=== PATIENT | male | born 1950 | race Caucasian/White ===

== ENCOUNTER 2017-03-23 17:34 | Inpatient (IN) | payer OTHER ==
[2017-03-23] MEDS ORDERED: Sodium Chloride 0.9% 2.5 ML Syringe FLUSH PRN ×2 (17:52→19:58)
[2017-03-23] MEDS ORDERED: Sodium Chloride 0.9% 10 ML Syringe FLUSH PRN ×2 (17:52→19:58)
[2017-03-23 18:19] LABS: CHLORIDE,CL 108 mmol/L (98-110); SODIUM,NA 141 mmol/L (136-146)
[2017-03-23] MEDS ORDERED: Aspirin 81 MG Tab.Chew PO ONE (18:26)
--- NOTE | 2017-03-23 18:29 | EDM.PDOC ---
ED HPI GENERAL MEDICAL PROBLEM - General Chief Complaint: Neuro Symptoms/Deficits Stated Complaint: SLURRED SPEECH/DROOLING/STUMBLING/HBP Time Seen by Provider: 03/23/17 17:44 - History of Present Illness INITIAL COMMENTS - FREE TEXT/NARRATIVE: HISTORY AND PHYSICAL: History of present illness: Patient is 66-year-old white male who presents with a concern of slurred speech and difficulty walking last known well time was last night and patient was witnessed to have these symptoms at 9 AM but declined transfer to Hospital that time all of his symptoms have improved somewhat although he still does have speech that is considered to be abnormal per son and patient his symptoms earlier included difficulty walking with associated fall slurred speech and drooling. He denies chest pain shortness of breath nice prior stroke or [place] all his symptoms have resolved with the exception of speech per patient and son Review of systems: As per history of present illness and below otherwise all systems reviewed and negative. Past medical history: As per history of present illness and as reviewed below otherwise noncontributory. Surgical history: As per history of present illness and as reviewed below otherwise noncontributory. Social history: No reported history of drug or alcohol abuse. Family history: As per history of present illness and as reviewed below otherwise noncontributory. Physical exam: HEENT: Atraumatic, normocephalic, pupils reactive, negative for conjunctival pallor or scleral icterus, mucous membranes moist, throat clear, neck supple, nontender, trachea midline. Lungs: Clear to auscultation, breath sounds equal bilaterally, chest nontender. Heart: S1S2, regular, negative for clicks, rubs, or JVD. Abdomen: Soft, nondistended, nontender. Negative for masses or hepatosplenomegaly. Negative for costovertebral tenderness. Pelvis: Stable nontender. Genitourinary: Deferred. Rectal: Deferred. Extremities: Atraumatic, negative for cords or calf pain. Neurovascular unremarkable. Neuro: Awake, alert, oriented. Speech is noted to be somewhat deliberate and is reportedly not as fluid or clear as baseline per son Cranial nerves II through XII unremarkable. Cerebellum unremarkable. Motor and sensory unremarkable throughout. Exam nonfocal. Diagnostics: CBC CMP troponin PT/INR chest x-ray EKG CT brain Therapeutics: IV O2 monitor aspirin Impression: #1 history of dysarthria/ataxia improved #2 history of fall Definitive disposition and diagnosis as appropriate pending reevaluation and review of above. - Related Data Allergies Allergy/AdvReac Type Severity Reaction Status Date / Time No Known Allergies Allergy Verified 03/23/17 17:50 Home Meds: Home Meds Triamterene/Hydrochlorothiazid [Triamterene-HCTZ 75-50 MG] 1 tab DAILY 03/23/17 [History] Past Medical History HEENT History: Reports: None Cardiovascular History: Reports: Hypertension Respiratory History: Reports: None Genitourinary History: Reports: None Musculoskeletal History: Reports: None Neurological History: Reports: None Psychiatric History: Reports: None Endocrine/Metabolic History: Reports: None Hematologic History: Reports: None Immunologic History: Reports: None Oncologic (Cancer) History: Reports: None Dermatologic History: Reports: None - Past Surgical History Head Surgeries/Procedures: Reports: None GI Surgical History: Reports: Hernia, Inguinal Social & Family History - Tobacco Use Smoking Status *Q: Never Smoker Second Hand Smoke Exposure: No - Recreational Drug Use Recreational Drug Use: No ED ROS GENERAL - Review of Systems Review Of Systems: ROS reveals no pertinent complaints other than HPI. ED EXAM, GENERAL - Physical Exam Exam: See Below (See dictation) Course - Vital Signs Last Recorded V/S: Last Vital Signs Temp 36.3 C 03/23/17 17:40 Pulse 89 03/23/17 18:45 Resp 16 03/23/17 18:45 BP 159/98 H 03/23/17 18:45 Pulse Ox 95 03/23/17 18:45 - Orders/Labs/Meds Orders: Active Orders 24 hr Category Date Time Status Bedrest [RC] ASDIRECTED Care 03/23/17 17:52 Active Blood Glucose Check, Bedside [RC] STAT Care 03/23/17 17:52 Active Cardiac Monitoring [RC] . DIRECTED Care 03/23/17 17:52 Active EKG Documentation Completion [RC] STAT Care 03/23/17 17:52 Active Height and Weight [RC] UPON Care 03/23/17 17:52 Active Initiate Acute Stroke Protocol [RC] STAT Care 03/23/17 17:52 Active NIH Stroke Scale [RC] ASDIRECTED Care 03/23/17 17:52 Active Nursing Bedside Swallow Screen [RC] ASDIRECTED Care 03/23/17 17:52 Active Oxygen Therapy [RC] ASDIRECTED Care 03/23/17 17:52 Active Stroke Education, General [RC] Click To Edit Care 03/23/17 17:52 Active Vital Signs [RC] Q15M Care 03/23/17 17:52 Active Chest 1V Frontal [CR] Stat Exams 03/23/17 17:53 Taken Head wo Cont [CT] Stat Exams 03/23/17 17:52 Taken Sodium Chloride 0.9% [Saline Flush] Med 03/23/17 17:52 Active 10 ml FLUSH ASDIRECTED PRN Sodium Chloride 0.9% [Saline Flush] Med 03/23/17 17:52 Active 2.5 ml FLUSH ASDIRECTED PRN Peripheral IV Insertion Adult [OM.PC] Stat Oth 03/23/17 17:52 Ordered Peripheral IV Insertion Adult [OM.PC] Stat Oth 03/23/17 17:52 Ordered Medication Orders Sodium Chloride (Saline Flush) 10 ml FLUSH ASDIRECTED PRN PRN Reason: Keep Vein Open Last Admin: 03/23/17 18:52 Dose: 10 ml Sodium Chloride (Saline Flush) 2.5 ml FLUSH ASDIRECTED PRN PRN Reason: Keep Vein Open Last Admin: 03/23/17 18:52 Dose: 2.5 ml Labs: Laboratory Tests 03/23/17 03/23/17 03/23/17 Range/Units 17:53 17:53 17:53 WBC 4.92 (4.0-11.0) K/uL RBC 4.62 (4.50-5.90) M/uL Hgb 14.1 (13.0-17.0) g/dL Hct 41.1 (38.0-50.0) % MCV 89.0 (80.0-98.0) fL MCH 30.5 (27.0-32.0) pg MCHC 34.3 (31.0-37.0) g/dL RDW Std Deviation 45.3 (28.0-62.0) fl RDW Coeff of Antonia 14 (11.0-15.0) % Plt Count 238 (150-400) K/uL MPV 9.60 (7.40-12.00) fL Neut % (Auto) 55.7 (48.0-80.0) % Lymph % (Auto) 30.1 (16.0-40.0) % [place] % (Auto) 8.5 (0.0-15.0) % Eos % (Auto) 5.1 (0.0-7.0) % Baso % (Auto) 0.6 (0.0-1.5) % Neut # (Auto) 2.7 (1.4-5.7) K/uL Lymph # (Auto) 1.5 (0.6-2.4) K/uL [place] # (Auto) 0.4 (0.0-0.8) K/uL Eos # (Auto) 0.3 (0.0-0.7) K/uL Baso # (Auto) 0.0 (0.0-0.1) K/uL Nucleated RBC % 0.0 /100WBC Nucleated RBCs # 0 K/uL INR 1.03 (0.86-1.11) APTT 35.0 H (18.6-31.3) SEC Sodium 141 (136-146) mmol/L Potassium 3.9 (3.5-5.1) mmol/L Chloride 108 (98-110) mmol/L Carbon Dioxide 24 (21-31) mmol/L BUN 17 (6.0-23.0) mg/dL Creatinine 1.3 (0.6-1.5) mg/dL Est Cr Clr Drug Dosing TNP Estimated GFR (MDRD) 55.6 ml/min Glucose 143 H (60-110) mg/dL Calcium 9.0 (8.8-10.8) mg/dL Total Bilirubin 0.9 (0.1-1.5) mg/dL AST 22 (5-40) IU/L ALT 22 (8-54) IU/L Alkaline Phosphatase 71 (40-150) Troponin I (0.0-0.29) NG/ML Total Protein 6.7 (6.0-8.0) g/dL Albumin 4.1 (3.4-4.8) g/dL Globulin 2.6 (2.0-3.5) g/dL Albumin/Globulin Ratio 1.6 (1.3-2.8) TSH 3rd Generation 4.05 (0.47-5.0) uIU/mL Urine Color Urine Appearance Urine pH (5.0-8.0) Ur Specific [place] (1.001-1.035) Urine Protein (NEGATIVE) mg/dL Urine Glucose (UA) (NEGATIVE) mg/dL Urine Ketones (NEGATIVE) mg/dL Urine Occult Blood (NEGATIVE) Urine Nitrite (NEGATIVE) Urine Bilirubin (NEGATIVE) Urine Urobilinogen (<2.0) EU/dL Ur Leukocyte Esterase (NEGATIVE) Urine RBC (0-2/HPF) Urine WBC (0-5/HPF) Ur Epithelial Cells (NONE-FEW) Urine Bacteria (NEGATIVE) 03/23/17 03/23/17 Range/Units 17:53 18:26 WBC (4.0-11.0) K/uL RBC (4.50-5.90) M/uL Hgb (13.0-17.0) g/dL Hct (38.0-50.0) % MCV (80.0-98.0) fL MCH (27.0-32.0) pg MCHC (31.0-37.0) g/dL RDW Std Deviation (28.0-62.0) fl RDW Coeff of Antonia (11.0-15.0) % Plt Count (150-400) K/uL MPV (7.40-12.00) fL Neut % (Auto) (48.0-80.0) % Lymph % (Auto) (16.0-40.0) % [place] % (Auto) (0.0-15.0) % Eos % (Auto) (0.0-7.0) % Baso % (Auto) (0.0-1.5) % Neut # (Auto) (1.4-5.7) K/uL Lymph # (Auto) (0.6-2.4) K/uL [place] # (Auto) (0.0-0.8) K/uL Eos # (Auto) (0.0-0.7) K/uL Baso # (Auto) (0.0-0.1) K/uL Nucleated RBC % /100WBC Nucleated RBCs # K/uL INR (0.86-1.11) APTT (18.6-31.3) SEC Sodium (136-146) mmol/L Potassium (3.5-5.1) mmol/L Chloride (98-110) mmol/L Carbon Dioxide (21-31) mmol/L BUN (6.0-23.0) mg/dL Creatinine (0.6-1.5) mg/dL Est Cr Clr Drug Dosing Estimated GFR (MDRD) ml/min Glucose (60-110) mg/dL Calcium (8.8-10.8) mg/dL Total Bilirubin (0.1-1.5) mg/dL AST (5-40) IU/L ALT (8-54) IU/L Alkaline Phosphatase (40-150) Troponin I < 0.10 (0.0-0.29) NG/ML Total Protein (6.0-8.0) g/dL Albumin (3.4-4.8) g/dL Globulin (2.0-3.5) g/dL Albumin/Globulin Ratio (1.3-2.8) TSH 3rd Generation (0.47-5.0) uIU/mL Urine Color YELLOW Urine Appearance CLEAR Urine pH 6.5 (5.0-8.0) Ur Specific [place] 1.015 (1.001-1.035) Urine Protein NEGATIVE (NEGATIVE) mg/dL Urine Glucose (UA) NEGATIVE (NEGATIVE) mg/dL Urine Ketones NEGATIVE (NEGATIVE) mg/dL Urine Occult Blood NEGATIVE (NEGATIVE) Urine Nitrite NEGATIVE (NEGATIVE) Urine Bilirubin NEGATIVE (NEGATIVE) Urine Urobilinogen 0.2 (<2.0) EU/dL Ur Leukocyte Esterase NEGATIVE (NEGATIVE) Urine RBC 0-1 (0-2/HPF) Urine WBC 0-1 (0-5/HPF) Ur Epithelial Cells OCCASIONAL (NONE-FEW) Urine Bacteria FEW (NEGATIVE) Meds: Medications Generic Name Dose Route Start Last Admin Trade Name Freq PRN Reason Stop Dose Admin Sodium Chloride 10 ml 03/23/17 17:52 03/23/17 18:52 Saline Flush FLUSH 10 ml ASDIRECTED PRN Administration Keep Vein Open Sodium Chloride 2.5 ml 03/23/17 17:52 03/23/17 18:52 Saline Flush FLUSH 2.5 ml ASDIRECTED PRN Administration Keep Vein Open Discontinued Medications Generic Name Dose Route Start Last Admin Trade Name Freq PRN Reason Stop Dose Admin Aspirin 324 mg 03/23/17 18:26 03/23/17 18:47 Aspirin PO 03/23/17 18:27 324 mg ONETIME ONE Administration Departure - Departure Time of Disposition: 19:17 Disposition: Refer to Observation Condition: Good Clinical Impression: TIA (transient ischemic attack) - Discharge Information Forms: ED Department Discharge - My Orders Last 24 Hours: My Active Orders 03/23/17 17:52 Bedrest [RC] ASDIRECTED Blood Glucose Check, Bedside [RC] STAT Cardiac Monitoring [RC] . DIRECTED EKG Documentation Completion [RC] STAT Height and Weight [RC] UPON Initiate Acute Stroke Protocol [RC] STAT NIH Stroke Scale [RC] ASDIRECTED Nursing Bedside Swallow Screen [RC] ASDIRECTED Oxygen Therapy [RC] ASDIRECTED Stroke Education, General [RC] Click To Edit Vital Signs [RC] Q15M Head wo Cont [CT] Stat Sodium Chloride 0.9% [Saline Flush] 10 ml FLUSH ASDIRECTED PRN Sodium Chloride 0.9% [Saline Flush] 2.5 ml FLUSH ASDIRECTED PRN Peripheral IV Insertion Adult [OM.PC] Stat Peripheral IV Insertion Adult [OM.PC] Stat 03/23/17 17:53 Chest 1V Frontal [CR] Stat - Assessment/Plan Last 24 Hours: My Active Orders 03/23/17 17:52 Bedrest [RC] ASDIRECTED Blood Glucose Check, Bedside [RC] STAT Cardiac Monitoring [RC] . DIRECTED EKG Documentation Completion [RC] STAT Height and Weight [RC] UPON Initiate Acute Stroke Protocol [RC] STAT NIH Stroke Scale [RC] ASDIRECTED Nursing Bedside Swallow Screen [RC] ASDIRECTED Oxygen Therapy [RC] ASDIRECTED Stroke Education, General [RC] Click To Edit Vital Signs [RC] Q15M Head wo Cont [CT] Stat Sodium Chloride 0.9% [Saline Flush] 10 ml FLUSH ASDIRECTED PRN Sodium Chloride 0.9% [Saline Flush] 2.5 ml FLUSH ASDIRECTED PRN Peripheral IV Insertion Adult [OM.PC] Stat Peripheral IV Insertion Adult [OM.PC] Stat 03/23/17 17:53 Chest 1V Frontal [CR] Stat
[2017-03-23] MEDS ORDERED: Acetaminophen 325 MG Tab PO PRN (19:58)
[2017-03-23] MEDS ORDERED: Temazepam 15 MG Cap PO PRN (19:58)
[2017-03-23] MEDS ORDERED: Ondansetron 4 MG Tab.DIS PO PRN (19:58)
--- NOTE | 2017-03-23 19:58 | PCM.HP ---
H&P History of Present Illness - General Date of Service: 03/23/17 Source of Information: Patient, Family, Provider - History of Present Illness Initial Comments - Free Text/Narative: He noted onset of ataxia and dysarthria at about 0900 this am. He has a history of HTN and dyslipidemia - Related Data Allergies/Adverse Reactions: Allergies Allergy/AdvReac Type Severity Reaction Status Date / Time No Known Allergies Allergy Verified 03/23/17 17:50 Home Medications: Home Meds Triamterene/Hydrochlorothiazid [Triamterene-HCTZ 75-50 MG] 1 tab DAILY 03/23/17 [History] Past Medical History HEENT History: Reports: None Cardiovascular History: Reports: Hypertension Respiratory History: Reports: None. Denies: COPD Gastrointestinal History: Denies: Cirrhosis Genitourinary History: Reports: None Musculoskeletal History: Reports: None Neurological History: Reports: None. Denies: CVA, MS Psychiatric History: Reports: None Endocrine/Metabolic History: Reports: None. Denies: Diabetes, Type I, Diabetes , Type II Hematologic History: Reports: None Immunologic History: Reports: None Oncologic (Cancer) History: Reports: None Dermatologic History: Reports: None - Past Surgical History Head Surgeries/Procedures: Reports: None GI Surgical History: Reports: Hernia, Inguinal Social & Family History - Tobacco Use Smoking Status *Q: Never Smoker Second Hand Smoke Exposure: No - Alcohol Use Alcohol Use Comment: rare use of alcohol - Recreational Drug Use Recreational Drug Use: No H&P Review of Systems - Review of Systems: Review Of Systems: See Below General: Denies: Fever, Chills HEENT: Denies: Dysphasia, Eye Pain, Rhinitis Pulmonary: Denies: Shortness of Breath, Wheezing, Cough, Sputum Cardiovascular: Denies: Chest Pain, Palpitations, Edema, Other Gastrointestinal: Denies: Abdominal Pain, Anorexia, Bloody Stool, Hematemesis, Hematochezia, Vomiting Genitourinary: Reports: Other (urinary frequency). Denies: Dysuria, Burning, Hematuria Skin: Denies: Jaundice Psychiatric: Denies: Agitation, Hallucinations Neurological: Denies: Confusion Exam - Exam Exam: See Below - Vital Signs Vital Signs: Last Vital Signs Temp 97.4 F 03/23/17 17:40 Pulse 89 03/23/17 18:45 Resp 16 03/23/17 18:45 BP 159/98 H 03/23/17 18:45 Pulse Ox 95 03/23/17 18:45 Weight: 102 kg - Exam General: Alert, Oriented. No: Lethargic HEENT: EOMI, PERRLA Lungs: Clear to Auscultation, Normal Respiratory Effort Cardiovascular: Regular Rate, Regular Rhythm. No: Bradycardia, Tachycardia, Systolic Murmur, Diastolic Murmur GI/Abdominal Exam: Soft, Non-Tender Rectal (Males) Exam: Deferred Extremities: No Pedal Edema Neurological: No: Normal Speech (very slight slurring of speech) Neuro Extensive - Mental Status: Normal Mood/Affect, Other (conversant; very subtle right facial droop; no definite asymmetry in handgrip; unsteady gait; trouble keeping) Neuro Extensive - Motor, Sensory, Reflexes: No: Normal Gait (some loss of equilibrium with head turning), Pronator Drift (R), Pronator Drift (L), Abnormal Finger to Nose Psychiatric: Alert, Normal Affect. No: Depressed, Agitated, Hallucinations - Patient Data Result Diagrams: 03/23/17 17:53 03/23/17 17:53 *Q Meaningful Use (ADM) - VTE *Q VTE Criteria *Q: - Stroke *Q Stroke Criteria *Q: - AMI *Q AMI Criteria *Q: - Problem List (1) Ischemic stroke SNOMED Code(s): 925722798 ICD Code: I63.9 - CEREBRAL INFARCTION, UNSPECIFIED Status: Acute Current Visit: Yes (2) History of hypertension SNOMED Code(s): 183705356 ICD Code: Z86.79 - PERSONAL HISTORY OF OTHER DISEASES OF THE CIRCULATORY SYSTEM Status: Acute Current Visit: Yes Problem List Initiated/Reviewed/Updated: Yes Orders Last 24hrs: Medication Orders Sodium Chloride (Saline Flush) 10 ml FLUSH ASDIRECTED PRN PRN Reason: Keep Vein Open Last Admin: 03/23/17 18:52 Dose: 10 ml Sodium Chloride (Saline Flush) 2.5 ml FLUSH ASDIRECTED PRN PRN Reason: Keep Vein Open Last Admin: 03/23/17 18:52 Dose: 2.5 ml Assessment/Plan Comment:: admit see orders.
[2017-03-24] MEDS ORDERED: Hydrochlorothiazide/Triamterene 50-75 MG Tab PO SCH (09:00)
[2017-03-24] MEDS: Enoxaparin 40 MG/0.4 ML Syringe SUBCUT SCH (10:03)
[2017-03-24] MEDS: Aspirin 325 MG Tab PO SCH (10:03)
--- NOTE | 2017-03-24 10:14 | PCM.PN ---
- General Info Date of Service: 03/24/17 Admission Dx/Problem (Free Text): Ataxia, dysarthia Subjective Update: Still having complaints of slurred/slow speech. Also has complaints of unsteady gait if he moves too quickly. R arm weakness, feels it is related to his should injury, denies any pain to this arm. Has trouble lifting whole arm, not just with movement of shoulder joint. Denies chest pain, palpitations, or SOB. Functional Status: Reports: Pain Controlled, Tolerating Diet, Ambulating, Urinating - Review of Systems General: Reports: No Symptoms. Denies: Fever, Weakness, Fatigue Pulmonary: Denies: Shortness of Breath Cardiovascular: Denies: Chest Pain, Palpitations, Edema Gastrointestinal: Denies: Abdominal Pain, Nausea, Vomiting Genitourinary: Reports: No Symptoms. Denies: Frequency, Burning Musculoskeletal: Reports: No Symptoms Neurological: Reports: Trouble Speaking, Difficulty Walking (R sided weakness), Weakness (R arm and leg), Change in Speech (slurred and slow), Gait Disturbance. Denies: Headache Psychiatric: Reports: No Symptoms - Patient Data Vitals - Most Recent: Last Vital Signs Temp 97.2 F 03/24/17 08:00 Pulse 76 03/24/17 08:00 Resp 22 H 03/24/17 08:00 BP 149/94 H 03/24/17 08:00 Pulse Ox 97 03/24/17 08:00 Weight - Most Recent: 102 kg I&O - Last 24 Hours: Intake & Output 03/23/17 03/24/17 03/24/17 22:59 06:59 14:59 Intake Total 380 Output Total 1050 Balance -670 Lab Results Last 24 Hours: Laboratory Results - last 24 hr 03/24/17 03/24/17 03/24/17 Range/Units 04:55 04:55 04:55 WBC 4.09 (4.0-11.0) K/uL RBC 4.72 (4.50-5.90) M/uL Hgb 14.2 (13.0-17.0) g/dL Hct 42.4 (38.0-50.0) % MCV 89.8 (80.0-98.0) fL MCH 30.1 (27.0-32.0) pg MCHC 33.5 (31.0-37.0) g/dL RDW Std Deviation 45.6 (28.0-62.0) fl RDW Coeff of Antonia 14 (11.0-15.0) % Plt Count 235 (150-400) K/uL MPV 9.70 (7.40-12.00) fL Neut % (Auto) 49.9 (48.0-80.0) % Lymph % (Auto) 34.2 (16.0-40.0) % [place] % (Auto) 8.8 (0.0-15.0) % Eos % (Auto) 6.4 (0.0-7.0) % Baso % (Auto) 0.7 (0.0-1.5) % Neut # (Auto) 2.0 (1.4-5.7) K/uL Lymph # (Auto) 1.4 (0.6-2.4) K/uL [place] # (Auto) 0.4 (0.0-0.8) K/uL Eos # (Auto) 0.3 (0.0-0.7) K/uL Baso # (Auto) 0.0 (0.0-0.1) K/uL Nucleated RBC % 0.0 /100WBC Nucleated RBCs # 0 K/uL Sodium 141 (136-146) mmol/L Potassium 4.7 (3.5-5.1) mmol/L Chloride 106 (98-110) mmol/L Carbon Dioxide 28 (21-31) mmol/L BUN 17 (6.0-23.0) mg/dL Creatinine 1.3 (0.6-1.5) mg/dL Est Cr Clr Drug Dosing 68.61 mL/min Estimated GFR (MDRD) 55.6 ml/min Glucose 107 (60-110) mg/dL Calcium 9.4 (8.8-10.8) mg/dL Magnesium 1.7 (1.5-2.3) mEq/L Triglycerides 63 (10-190) mg/dL Cholesterol 150 (131-240) mg/dL LDL Cholesterol, Calc 107 (60-180) mg/dL VLDL Cholesterol 13 (5-55) mg/dL HDL Cholesterol 30 L (40-80) mg/dL Cholesterol/HDL Ratio 5.0 (3.3-6.0) Med Orders - Current: Current Medications Acetaminophen (Tylenol) 650 mg PO Q4H PRN PRN Reason: Pain (Mild 1-3)/fever Aspirin (Aspirin) 325 mg PO DAILY [facility] Last Admin: 03/24/17 10:03 Dose: 325 mg Enoxaparin Sodium (Lovenox) 40 mg SUBCUT DAILY [facility] Last Admin: 03/24/17 10:03 Dose: 40 mg Ondansetron HCl (Zofran Odt) 4 mg PO Q4H PRN PRN Reason: nausea, able to take PO Sodium Chloride (Saline Flush) 10 ml FLUSH ASDIRECTED PRN PRN Reason: Keep Vein Open Sodium Chloride (Saline Flush) 2.5 ml FLUSH ASDIRECTED PRN PRN Reason: Keep Vein Open Temazepam (Restoril) 15 mg PO BEDTIME PRN PRN Reason: Sleep Discontinued Medications Aspirin (Aspirin) 324 mg PO ONETIME ONE Stop: 03/23/17 18:27 Last Admin: 03/23/17 18:47 Dose: 324 mg Sodium Chloride (Saline Flush) 10 ml FLUSH ASDIRECTED PRN PRN Reason: Keep Vein Open Last Admin: 03/23/17 18:52 Dose: 10 ml Sodium Chloride (Saline Flush) 2.5 ml FLUSH ASDIRECTED PRN PRN Reason: Keep Vein Open Last Admin: 03/23/17 18:52 Dose: 2.5 ml Triamterene/HCTZ (Maxzide 50-75 Mg) 1 each PO DAILY [facility] - Exam General: Alert, Oriented, Cooperative, No Acute Distress HEENT: Pupils Equal Neck: Supple, Trachea Midline, +2 Carotid Pulse wo Bruit Lungs: Clear to Auscultation, Normal Respiratory Effort Cardiovascular: Regular Rate, Regular Rhythm, No Murmurs. No: Irregular Rhythm Extremities: Normal Inspection, Normal Range of Motion, Non-Tender, No Pedal Edema, Normal Capillary Refill Neurological: No: Normal Gait, Normal Speech, Strength Equal Bilateral (R weaker than L, ataxia noted.), Cranial Nerves Intact (R sided facial droop) Psy/Mental Status: Alert, Normal Affect, Normal Mood - Problem List & Annotations (1) Ischemic stroke SNOMED Code(s): 899383604 Code(s): I63.9 - CEREBRAL INFARCTION, UNSPECIFIED Status: Acute Current Visit: Yes (2) HTN (hypertension) SNOMED Code(s): 83403683 Code(s): I10 - ESSENTIAL (PRIMARY) HYPERTENSION Status: Chronic Current Visit: Yes Qualifiers: Hypertension type: essential hypertension Qualified Code(s): I10 - Essential (primary) hypertension (3) Dyslipidemia SNOMED Code(s): 229496534 Code(s): E78.5 - HYPERLIPIDEMIA, UNSPECIFIED Status: Chronic Current Visit: Yes Annotation/Comment:: never been on medication, treating with grape seed oil per patient. - Problem List Review Problem List Initiated/Reviewed/Updated: Yes - My Orders Last 24 Hours: My Active Orders 03/24/17 10:07 GLYCOSYLATED HEMOGLOBIN,HGBA1C [CHEM] Routine - Plan Plan:: This 66 year old male admitted with ataxia and dysarthia 1. Suspected ischemic CVA: ECHO pending. MRI/MRA head/neck ordered for today. Allow permissive HTN for now, will consult Dr. Simms, neurology. Will consult PT/OT/ST for evaluation and treatment. Total cholesterol 150 LDL 107, HDL 30, A1C 5.6. Will continue ASA and start high intensity statin therapy today , Atorvastatin 80 mg. 2. HTN: Hold HCTZ/Triamterene for now. VTE prophylaxis: Lovenox. Dispo: 2-3 days pending further evaluation from Neurologist and therapies.
--- NOTE | 2017-03-24 10:17 | CR ---
EXAM DATE: 03/23/17 PATIENT'S AGE: 66 Patient: JULIANE OSUNA Facility: [place], [place] Site . Site : 1950 Study: XRay Chest [id number]/21/2017 6:08:07 PM Ordering Physician: Vinny Diaz Final Report: INDICATIONS: Stroke. Code. TECHNIQUE: Chest 1 view, AP upright. COMPARISON: None FINDINGS: No pneumothorax, pleural effusion or airspace consolidation. Cardiac and mediastinal contours are within normal limits. Upper abdomen and osseous structures show no acute abnormality. IMPRESSION: No evidence of acute cardiopulmonary disease. Dictated by Cordell Ford MD @ 03/23/2017 6:38:13 PM Dictated by: Cordell Ford MD @ 03/23/2017 18:39:10 (Electronic Signature) Report Signed by Proxy. [facility]ENTER[facility]ign[facility]
--- NOTE | 2017-03-24 10:18 | CT ---
EXAM DATE: 03/23/17 PATIENT'S AGE: 66 Patient: JULIANE OSUNA Facility: [place], [place] Site . Site : 1950 Study: CT Head STROKE PROTOCOL [id number]/21/2017 6:09:46 PM Ordering Physician: Vinny Diaz Final Report: INDICATION: Clinical suspicion for acute ischemic event. TECHNIQUE: CT head without contrast. COMPARISON: None FINDINGS: CSF spaces: Within normal limits for age. Brain parenchyma: The leo-white differentiation is normal. No sign of mass, hemorrhage, or midline shift. Skull base and calvarium: The visualized paranasal sinuses and mastoid air cells demonstrate no acute or significant findings. The visualized orbits are grossly unremarkable. No skull fractures. IMPRESSION: Unremarkable noncontrast head CT. No acute intracranial abnormalities. Dictated by Ramesh Jaquez MD @ 03/23/2017 6:16:41 PM Dictated by: Ramesh Jaquez MD @ 03/23/2017 18:16:55 ----- ADDENDUM ----- Confirmation of report received on 03/23/2017 at 6:[address] Casillas: Dictated by Ramesh Jaquez MD @ Mar 23 2017 6:38PM (Electronic Signature) Report Signed by Proxy. [facility]
[2017-03-24] MEDS: atorvaSTATin 40 MG Tab PO SCH ×2 (12:00→20:50)
--- NOTE | 2017-03-24 13:10 | PCM.CONS ---
H&P History of Present Illness - General Date of Service: 03/24/17 Admit Problem/Dx: Ataxia, dysarthia, right sided weakness - History of Present Illness Initial Comments - Free Text/Narative: Yesterday morning, he fell back when he tried to get out of bed. He also noted numbness around his lip, right sided weakness, slurred speech at that time. He went to the ED last night after symptoms had not resolved. There may have been fluctuations in his exam based on report of assessments last night and this morning. He may have had an flulike symptoms a week ago but only lasted a day. Otherwise he's been in his normal state of health. No chest pain, shortness of breath. No history of similar episodes. His mother had a heart attack in her 40s , but there was suspicion that this was related to medication overdose. He has a history of hypertension. He denies history of hyperlipidemia Labs 03/24/2017 LDL 107, A1c 5.6 CT head 03/23/2017 negative - Related Data Allergies/Adverse Reactions: Allergies Allergy/AdvReac Type Severity Reaction Status Date / Time No Known Allergies Allergy Verified 03/23/17 17:50 Home Medications: Home Meds Triamterene/Hydrochlorothiazid [Triamterene-HCTZ 75-50 MG] 1 tab DAILY 03/23/17 [History] Past Medical History HEENT History: Reports: None Cardiovascular History: Reports: Hypertension Respiratory History: Reports: None Gastrointestinal History: Denies: Cirrhosis Genitourinary History: Reports: None Musculoskeletal History: Reports: None Other Musculoskeletal History: Shoulder issue Neurological History: Reports: None Psychiatric History: Reports: None Endocrine/Metabolic History: Reports: None Hematologic History: Reports: None Immunologic History: Reports: None Oncologic (Cancer) History: Reports: None Dermatologic History: Reports: None - Infectious Disease History Infectious Disease History: Reports: Chicken Pox, Measles - Past Surgical History Head Surgeries/Procedures: Reports: None Cardiovascular Surgical History: Reports: None GI Surgical History: Reports: Hernia, Inguinal Musculoskeletal Surgical History: Reports: None Social & Family History - Family History Family Medical History: Noncontributory - Tobacco Use Smoking Status *Q: Never Smoker Second Hand Smoke Exposure: No - Caffeine Use Caffeine Use: Reports: Coffee Other Caffeine Use: decaf coffee - Recreational Drug Use Recreational Drug Use: No H&P Review of Systems - Review of Systems: Review Of Systems: ROS reveals no pertinent complaints other than HPI. Exam - Exam Exam: See Below - Vital Signs Vital Signs: Last Vital Signs Temp 36.2 C 03/24/17 12:00 Pulse 77 03/24/17 12:00 Resp 20 03/24/17 12:00 BP 153/111 H 03/24/17 12:00 Pulse Ox 98 03/24/17 12:00 Weight: 102 kg - Exam Physical Exam Comments:: Constitutional: No acute distress Psychiatric: Mood/Affect: anxious Neurological: Mental Status: General: Normal activity, good hygiene, appropriate appearance. Level of consciousness: Awake, alert. Comprehension/Praxis: Able to perform a three step command. Language: Fluent. dysarthria. Cranial Nerves: Pupils equally round and reactive to light. Visual velez full to confrontation. Gaze conjugate, EOMI. Sensation intact and symmetric to light touch. Moderate right lower facial droop.. Palate elevates symmetrically. Mild dysarthria. Normal shrug bilaterally. Tongue protrudes midline Motor: Right upper limb drift. Right deltoid, intrinsic hand muscles 4-/5. Right triceps, biceps, wrist extensors and flexors 4/5. Power is 5/5 throughout proximal and distal muscles in left upper and bilateral lower limb.. Sensation: Sensation is intact to pinprick. Vibratory sense decreased at great toes. Deep tendon reflexes: Brisk throughout. Plantar responses are flexor bilaterally. Coordination: Finger to nose impaired in right upper limb due to weakness, but no clear ataxia. heel to ayers intact. HEENT: Eyes: non icteric, Mouth: moist mucus membranes Cardiovascular: RRR, no carotid bruits Respiratory: clear lungs GI: non tender Musculoskeletal: non tender Skin: no visible rash - Patient Data Lab Results Last 24 hrs: Laboratory Results - last 24 hr 03/24/17 03/24/17 03/24/17 Range/Units 04:55 04:55 04:55 WBC 4.09 (4.0-11.0) K/uL RBC 4.72 (4.50-5.90) M/uL Hgb 14.2 (13.0-17.0) g/dL Hct 42.4 (38.0-50.0) % MCV 89.8 (80.0-98.0) fL MCH 30.1 (27.0-32.0) pg MCHC 33.5 (31.0-37.0) g/dL RDW Std Deviation 45.6 (28.0-62.0) fl RDW Coeff of Antonia 14 (11.0-15.0) % Plt Count 235 (150-400) K/uL MPV 9.70 (7.40-12.00) fL Neut % (Auto) 49.9 (48.0-80.0) % Lymph % (Auto) 34.2 (16.0-40.0) % [place] % (Auto) 8.8 (0.0-15.0) % Eos % (Auto) 6.4 (0.0-7.0) % Baso % (Auto) 0.7 (0.0-1.5) % Neut # (Auto) 2.0 (1.4-5.7) K/uL Lymph # (Auto) 1.4 (0.6-2.4) K/uL [place] # (Auto) 0.4 (0.0-0.8) K/uL Eos # (Auto) 0.3 (0.0-0.7) K/uL Baso # (Auto) 0.0 (0.0-0.1) K/uL Nucleated RBC % 0.0 /100WBC Nucleated RBCs # 0 K/uL Sodium 141 (136-146) mmol/L Potassium 4.7 (3.5-5.1) mmol/L Chloride 106 (98-110) mmol/L Carbon Dioxide 28 (21-31) mmol/L BUN 17 (6.0-23.0) mg/dL Creatinine 1.3 (0.6-1.5) mg/dL Est Cr Clr Drug Dosing 68.61 mL/min Estimated GFR (MDRD) 55.6 ml/min Glucose 107 (60-110) mg/dL Hemoglobin A1c (0.0-6.0) % Calcium 9.4 (8.8-10.8) mg/dL Magnesium 1.7 (1.5-2.3) mEq/L Triglycerides 63 (10-190) mg/dL Cholesterol 150 (131-240) mg/dL LDL Cholesterol, Calc 107 (60-180) mg/dL VLDL Cholesterol 13 (5-55) mg/dL HDL Cholesterol 30 L (40-80) mg/dL Cholesterol/HDL Ratio 5.0 (3.3-6.0) 03/24/17 Range/Units 04:55 WBC (4.0-11.0) K/uL RBC (4.50-5.90) M/uL Hgb (13.0-17.0) g/dL Hct (38.0-50.0) % MCV (80.0-98.0) fL MCH (27.0-32.0) pg MCHC (31.0-37.0) g/dL RDW Std Deviation (28.0-62.0) fl RDW Coeff of Antonia (11.0-15.0) % Plt Count (150-400) K/uL MPV (7.40-12.00) fL Neut % (Auto) (48.0-80.0) % Lymph % (Auto) (16.0-40.0) % [place] % (Auto) (0.0-15.0) % Eos % (Auto) (0.0-7.0) % Baso % (Auto) (0.0-1.5) % Neut # (Auto) (1.4-5.7) K/uL Lymph # (Auto) (0.6-2.4) K/uL [place] # (Auto) (0.0-0.8) K/uL Eos # (Auto) (0.0-0.7) K/uL Baso # (Auto) (0.0-0.1) K/uL Nucleated RBC % /100WBC Nucleated RBCs # K/uL Sodium (136-146) mmol/L Potassium (3.5-5.1) mmol/L Chloride (98-110) mmol/L Carbon Dioxide (21-31) mmol/L BUN (6.0-23.0) mg/dL Creatinine (0.6-1.5) mg/dL Est Cr Clr Drug Dosing mL/min Estimated GFR (MDRD) ml/min Glucose (60-110) mg/dL Hemoglobin A1c 5.6 (0.0-6.0) % Calcium (8.8-10.8) mg/dL Magnesium (1.5-2.3) mEq/L Triglycerides (10-190) mg/dL Cholesterol (131-240) mg/dL LDL Cholesterol, Calc (60-180) mg/dL VLDL Cholesterol (5-55) mg/dL HDL Cholesterol (40-80) mg/dL Cholesterol/HDL Ratio (3.3-6.0) Result Diagrams: 03/24/17 04:55 03/24/17 04:55 Consult PN Assessment/Plan (1) Ischemic stroke SNOMED Code(s): 067285421 Code(s): I63.9 - CEREBRAL INFARCTION, UNSPECIFIED Current Visit: Yes Assessment:: Acute onset face/arm weakness, dysarthria, ataxia c/w acute stroke. Recommendations: MRI brain pending MRA head and neck pending TTE pending Telemetry Agree with ASA 325 mg and Lipitor 80 mg daily. PT/OT/Speech consults Permissive HTN Problem List Initiated/Reviewed/Updated: Yes
--- NOTE | 2017-03-24 15:46 | MR ---
EXAMINATION: MRI of the brain with and without contrast, MRA neck with and without contrast, MRA hea d without contrast. Technique: Multiplanar and multisequence imaging of the brain and neck without and following adminis tration of MultiHance. Additional [id number] images obtained through the head and neck without c ontrast. MIP Reconstructions obtained. HISTORY: Stroke. FINDINGS: MRI brain: Cerebral hemispheres and the deep nuclei are without hemorrhage, mass, edema, enhancemen t or atrophy. There is diffusion restriction extending from the left periventricular region and int o the left basal ganglia. Small periventricular white matter FLAIR foci also noted. No extraaxial collections or hemorrhage. Ventricular system is of normal size and configuration with out hydrocephalus. The brainstem and cerebellum are without hemorrhage, mass, edema, gliosis, enhanc ement or atrophy. The carotid and basilar artery flow voids are intact. The otomastoid airspaces are clear. No inter nal auditory canal or cerebellopontine angle masses or enhancement. No cranial neuritis. Paranasal sinuses are clear. Globes, optic nerves, orbital apices, optic chiasm, optic tracts, and visual cortices are unremarkable. Pituitary and sella turcica are unremarkable. No meningeal enha ncement. The craniocervical junction is unremarkable. No siderosis or evidence of vascular malform ation. The calvarium is intact. MRA head: The distal internal carotid arteries are patent. The middle cerebral, anterior cerebral an d posterior cerebral arteries are patent. The left posterior cerebral artery demonstrates a persiste nt origin. The right posterior communicating artery and the anterior communicating artery appe ar normal. The right vertebral artery is dominant. The basilar artery appears normal. No significant region of stenosis identified. No aneurysm. MRA neck: There is a normal three-vessel origin of the aortic arch. The origins of the vertebral arteries are not well characterized bilaterally. The common carotid arteries are normal in caliber. The internal carotid arteries are widely patent. IMPRESSION: 1. Small left periventricular to left basal ganglial infarct. 2. Poor visualization of the origins of the vertebral arteries, otherwise unremarkable intracranial and neck screening arterial circulation.
[2017-03-25] MEDS: Aspirin 325 MG Tab PO SCH (09:11)
[2017-03-25] MEDS: Enoxaparin 40 MG/0.4 ML Syringe SUBCUT SCH (09:11)
--- NOTE | 2017-03-25 10:04 | PCM.PN ---
- General Info Date of Service: 03/25/17 Admission Dx/Problem (Free Text): Ataxia, dysarthia, right sided weakness, CVA Subjective Update: Reports feeling weaker to R arm and more numbness to R side of his face. This has waxed and waned during the night, per his report. Denies chest pain or SOB. NO palpitations. Functional Status: Reports: Pain Controlled, Tolerating Diet, Ambulating, Urinating - Review of Systems General: Reports: Weakness, Fatigue. Denies: Fever HEENT: Reports: No Symptoms. Denies: Eye Pain, Headaches, Sore Throat Pulmonary: Reports: No Symptoms. Denies: Shortness of Breath, Cough, Sputum Cardiovascular: Reports: No Symptoms. Denies: Chest Pain, Orthopnea, Edema Gastrointestinal: Reports: No Symptoms. Denies: Abdominal Pain, Nausea, Vomiting Genitourinary: Reports: No Symptoms. Denies: Dysuria, Frequency Musculoskeletal: Denies: Neck Pain Neurological: Reports: Numbness (R side of face), Trouble Speaking, Weakness (R arm and R leg, seems to be worse per patient report.), Gait Disturbance. Denies : Tingling Psychiatric: Reports: No Symptoms - Patient Data Vitals - Most Recent: Last Vital Signs Temp 98.2 F 03/25/17 08:00 Pulse 94 03/25/17 08:00 Resp 20 03/25/17 08:00 BP 160/102 H 03/25/17 08:00 Pulse Ox 97 03/25/17 08:00 Weight - Most Recent: 102 kg I&O - Last 24 Hours: Intake & Output 03/24/17 03/25/17 03/25/17 22:59 06:59 14:59 Intake Total 300 350 Output Total 550 700 Balance -250 -350 Lab Results Last 24 Hours: Laboratory Results - last 24 hr 03/24/17 Range/Units 04:55 Hemoglobin A1c 5.6 (0.0-6.0) % Med Orders - Current: Current Medications Acetaminophen (Tylenol) 650 mg PO Q4H PRN PRN Reason: Pain (Mild 1-3)/fever Aspirin (Aspirin) 325 mg PO DAILY [facility] Last Admin: 03/25/17 09:11 Dose: 325 mg Atorvastatin Calcium (Lipitor) 80 mg PO BEDTIME [facility] Last Admin: 03/24/17 20:50 Dose: 80 mg Enoxaparin Sodium (Lovenox) 40 mg SUBCUT DAILY [facility] Last Admin: 03/25/17 09:11 Dose: 40 mg Ondansetron HCl (Zofran Odt) 4 mg PO Q4H PRN PRN Reason: nausea, able to take PO Sodium Chloride (Saline Flush) 10 ml FLUSH ASDIRECTED PRN PRN Reason: Keep Vein Open Sodium Chloride (Saline Flush) 2.5 ml FLUSH ASDIRECTED PRN PRN Reason: Keep Vein Open Temazepam (Restoril) 15 mg PO BEDTIME PRN PRN Reason: Sleep Discontinued Medications Aspirin (Aspirin) 324 mg PO ONETIME ONE Stop: 03/23/17 18:27 Last Admin: 03/23/17 18:47 Dose: 324 mg Sodium Chloride (Saline Flush) 10 ml FLUSH ASDIRECTED PRN PRN Reason: Keep Vein Open Last Admin: 03/23/17 18:52 Dose: 10 ml Sodium Chloride (Saline Flush) 2.5 ml FLUSH ASDIRECTED PRN PRN Reason: Keep Vein Open Last Admin: 03/23/17 18:52 Dose: 2.5 ml Triamterene/HCTZ (Maxzide 50-75 Mg) 1 each PO DAILY [facility] - Exam General: Alert, Oriented, Cooperative, No Acute Distress HEENT: Pupils Equal, Pupils Reactive Neck: Supple, Other (tongue midline.) Lungs: Clear to Auscultation, Normal Respiratory Effort Cardiovascular: Regular Rate, Regular Rhythm GI/Abdominal Exam: Normal Bowel Sounds, Soft, Non-Tender, No Organomegaly, No Distention, No Abnormal Bruit, No Mass, Pelvis Stable Extremities: Normal Inspection, Normal Range of Motion, Non-Tender, No Pedal Edema, Other (weakness 4/5 to R leg) Neurological: Reflexes Equal Bilateral. No: Normal Speech (slurred speech, with noted R facial droop), Strength Equal Bilateral (Significant weakness to R 4/5, this am appeared about the same, further evaluation around 1130 revealed definite worsening of weakness 3/5) - Problem List & Annotations (1) Ischemic stroke SNOMED Code(s): 551429028 Code(s): I63.9 - CEREBRAL INFARCTION, UNSPECIFIED Status: Acute Current Visit: Yes (2) HTN (hypertension) SNOMED Code(s): 41710174 Code(s): I10 - ESSENTIAL (PRIMARY) HYPERTENSION Status: Chronic Current Visit: Yes Qualifiers: Hypertension type: essential hypertension Qualified Code(s): I10 - Essential (primary) hypertension (3) Dyslipidemia SNOMED Code(s): 922663619 Code(s): E78.5 - HYPERLIPIDEMIA, UNSPECIFIED Status: Chronic Current Visit: Yes Annotation/Comment:: never been on medication, treating with grape seed oil per patient. - Problem List Review Problem List Initiated/Reviewed/Updated: Yes - My Orders Last 24 Hours: My Active Orders 03/24/17 10:28 Consult to Physician [CONS] Routine atorvaSTATin [Lipitor] 80 mg PO BEDTIME 03/24/17 10:30 Notify Provider Consults [RC] ASDIRECTED 03/24/17 14:07 Consult to Speech Language Pathology [MEDIA ANALYST Evaluation and Treatment] [CONS] Routine 03/25/17 07:58 Consult to Head Waiter [CONS] Routine - Plan Plan:: This 66 year old male admitted with ataxia and dysarthia 1. CVA: ECHO back this afternoon, revealed LV EF 60-65%, impaired relaxation Grade 1 patter of LV diastolic filling, mildly dilated left atrium, aortic valve is structurally normal, trace mitral valve regurgitation, trace tricuspid valve regurgtitatin, no intracavity filling defects of intracardiac shunts.. MRI /MRA head/neck revealed infarct to left basal ganglia, no significant stenosis to arteries. Waxing and waning of symtpoms noted today, Dr. Ayala and Dr. Simms aware and assessed patient. Dr. Simms recommended repeat CT to rule out bleeding, may have had another event. Continue to allow permissive HTN. Continue PT/OT/ST for evaluation and treatment. Continue ASA and Atorvastatin [address] today reveals evolving left basal ganglia infarction with extension to the frank radiata, NO intracranial hemorrhage. Notified Dr. Simms, no change to treatment course at this time. Notified patient, and son who were at bedside. 2. HTN: Allow permissive HTN. Did speak with him regarding his medications, he states the HCTZ/Triameterene he stopped taking and had not taken it for awhile, when he had these symptoms he took half a pill in the morning, but overall these medications made him feel very achy and tired so he stopped taking them. He also had been on Lisinopril in the past, but he suffered acute renal failure on this and it was discontinued. VTE prophylaxis: Lovenox. Dispo: 2-4 days pending further evaluation from Neurologist and therapies.
[2017-03-25] MEDS ORDERED: Docusate Sodium 100 MG Cap PO PRN (12:33)
--- NOTE | 2017-03-25 13:07 | PCM.CONSN ---
[id number] weakness Subjective Update: His right arm is weaker today. No headaches other new deficits. - Patient Data Vitals - Most Recent: Last Vital Signs Temp 36.7 C 03/25/17 12:00 Pulse 88 03/25/17 12:00 Resp 20 03/25/17 12:00 BP 150/90 H 03/25/17 12:00 Pulse Ox 96 03/25/17 12:00 Weight - Most Recent: 102 kg I&O - Last 24 Hours: Intake & Output 03/24/17 03/25/17 03/25/17 22:59 06:59 14:59 Intake Total 300 350 Output Total 550 700 Balance -250 -350 Med Orders - Current: Current Medications Acetaminophen (Tylenol) 650 mg PO Q4H PRN PRN Reason: Pain (Mild 1-3)/fever Aspirin (Aspirin) 325 mg PO DAILY [facility] Last Admin: 03/25/17 09:11 Dose: 325 mg Atorvastatin Calcium (Lipitor) 80 mg PO BEDTIME [facility] Last Admin: 03/24/17 20:50 Dose: 80 mg Docusate Sodium (Colace) 100 mg PO BID PRN PRN Reason: Constipation Enoxaparin Sodium (Lovenox) 40 mg SUBCUT DAILY [facility] Last Admin: 03/25/17 09:11 Dose: 40 mg Ondansetron HCl (Zofran Odt) 4 mg PO Q4H PRN PRN Reason: nausea, able to take PO Sodium Chloride (Saline Flush) 10 ml FLUSH ASDIRECTED PRN PRN Reason: Keep Vein Open Sodium Chloride (Saline Flush) 2.5 ml FLUSH ASDIRECTED PRN PRN Reason: Keep Vein Open Temazepam (Restoril) 15 mg PO BEDTIME PRN PRN Reason: Sleep Discontinued Medications Aspirin (Aspirin) 324 mg PO ONETIME ONE Stop: 03/23/17 18:27 Last Admin: 03/23/17 18:47 Dose: 324 mg Sodium Chloride (Saline Flush) 10 ml FLUSH ASDIRECTED PRN PRN Reason: Keep Vein Open Last Admin: 03/23/17 18:52 Dose: 10 ml Sodium Chloride (Saline Flush) 2.5 ml FLUSH ASDIRECTED PRN PRN Reason: Keep Vein Open Last Admin: 03/23/17 18:52 Dose: 2.5 ml Triamterene/HCTZ (Maxzide 50-75 Mg) 1 each PO DAILY [facility] - Exam Physical Findings Comments:: Constitutional: No acute distress Psychiatric: Mood/Affect: anxious Neurological: Mental Status: General: Normal activity, good hygiene, appropriate appearance. Level of consciousness: Awake, alert. Comprehension/Praxis: Able to perform a three step command. Language: Fluent. dysarthria. Cranial Nerves: Pupils equally round and reactive to light. Visual velez full to confrontation. Gaze conjugate, EOMI. Sensation intact and symmetric to light touch. Moderate right lower facial droop.. Palate elevates symmetrically. Mild dysarthria. Normal shrug bilaterally. Tongue protrudes midline Motor: Right deltoid, intrinsic hand muscles 1/5. Right triceps 3/5, biceps 3/5 , wrist extensors 2/5. Power is 5/5 throughout proximal and distal muscles in left upper and bilateral lower limbs. Sensation: Sensation is intact to pinprick. Deep tendon reflexes: Brisk throughout. Coordination: Finger to nose impaired in right upper limb due to weakness Consult PN Assessment/Plan (1) Ischemic stroke SNOMED Code(s): 543175788 Code(s): I63.9 - CEREBRAL INFARCTION, UNSPECIFIED Current Visit: Yes Assessment:: Acute onset face/arm weakness, dysarthria, ataxia c/w acute stroke now with worsening right upper limb weakness - worsening ischemia, new ischemic event vs.hemorrhage. BP have been fluctuating, which may be cause of waxing, waning deficits. I recommend head CT to eval for bleed. MRI brain yesterday showed acute left basal ganglia infarct MRA head and neck showed no significant stenosis Rec: head CT to eval for bleed TTE pending Telemetry - no reported events thus fart Continue ASA 325 mg and Lipitor 80 mg daily. PT/OT/Speech following Permissive HTN Addendum: CT showed evolving stroke in left BG, no hemorrhage Problem List Initiated/Reviewed/Updated: Yes
--- NOTE | 2017-03-25 15:52 | CT ---
EXAM DATE: 03/23/17 PATIENT'S AGE: 66 Patient: JULIANE OSUNA Facility: [place], [place] Site . Site : [id number] Study: CT Head [id number]/23/2017 12:37:06 PM Ordering Physician: Lucy Diaz Final Report: CT HEAD DATE: 03/25/2017. CLINICAL HISTORY: Patient with left basal ganglia infarction and worsening weakness. TECHNIQUE: Standard CT scanning of the head was performed. COMPARISON: Head CT 03/23/2017. MRI is not available for direct comparison. FINDINGS: There is no intracranial hemorrhage. There is an evolving subacute left posterior putaminal infarction with extension to the frank radiata. The size of the ventricular system is normal for age. There is no mass effect or midline shift. The calvarium is unremarkable. The orbits are unremarkable. The paranasal sinuses are unremarkable. The mastoid air cells are unremarkable. The soft tissues are unremarkable. IMPRESSION: 1. No intracranial hemorrhage. 2. Evolving left basal ganglia infarction with extension to the frank radiata. Haris Ni M.D. Neurointerventionalist [facility] [employer] [facility] Pager: Office/Appointments: Answering Service: [facility]: [email or web address] Dictated by: Haris Ni MD @ 03/25/2017 13:00:23 (Electronic Signature) Report Signed by Proxy. [facility]ENTER[facility]ign[facility]
[2017-03-25] MEDS ORDERED: ALPRAZolam 0.25 MG Tab PO PRN (16:49)
[2017-03-25] MEDS: atorvaSTATin 40 MG Tab PO SCH ×2 (21:48→22:08)
[2017-03-26] MEDS: Enoxaparin 40 MG/0.4 ML Syringe SUBCUT SCH (09:49)
[2017-03-26] MEDS: Aspirin 325 MG Tab PO SCH (09:49)
--- NOTE | 2017-03-26 10:06 | PCM.PN ---
- General Info Date of Service: 03/26/17 Admission Dx/Problem (Free Text): Ataxia, dysarthia, right sided weakness Subjective Update: Doing fair this am, RUE weakness about the same as yesterday. Feeling very tired at times, napping alot. Noticing uncontrollable laughing and crying at different times. and son at bedside. Denies chest pain or SOB. NO headache at this time. Speech improving. Continues to ambulate frequently in hallway. Functional Status: Reports: Tolerating Diet, Ambulating, Urinating - Review of Systems General: Reports: No Symptoms. Denies: Fever HEENT: Reports: No Symptoms. Denies: Sore Throat Pulmonary: Reports: No Symptoms. Denies: Shortness of Breath Cardiovascular: Reports: No Symptoms. Denies: Chest Pain, Palpitations, Lightheadedness Gastrointestinal: Reports: No Symptoms. Denies: Abdominal Pain, Nausea, Vomiting Genitourinary: Reports: No Symptoms. Denies: Dysuria, Frequency, Burning Musculoskeletal: Reports: No Symptoms. Denies: Neck Pain Neurological: Reports: Trouble Speaking (improving,), Weakness (RUE and RLE, no change today.). Denies: Numbness Psychiatric: Reports: Anxiety (intermittent, feels like mind is racing). Denies : Depression, Hallucinations - Patient Data Vitals - Most Recent: Last Vital Signs Temp 97.5 F 03/26/17 00:00 Pulse 62 03/26/17 00:00 Resp 20 03/26/17 00:00 BP 149/82 H 03/26/17 00:00 Pulse Ox 98 03/26/17 00:00 Weight - Most Recent: 102 kg I&O - Last 24 Hours: Intake & Output 03/25/17 03/26/17 03/26/17 22:59 06:59 14:59 Output Total 600 Balance -600 Med Orders - Current: Current Medications Acetaminophen (Tylenol) 650 mg PO Q4H PRN PRN Reason: Pain (Mild 1-3)/fever Alprazolam (Xanax) 0.25 mg PO Q8H PRN PRN Reason: Anxiety Aspirin (Aspirin) 325 mg PO DAILY [facility] Last Admin: 03/26/17 09:49 Dose: 325 mg Atorvastatin Calcium (Lipitor) 80 mg PO BEDTIME [facility] Last Admin: 03/25/17 22:08 Dose: Not Given Docusate Sodium (Colace) 100 mg PO BID PRN PRN Reason: Constipation Last Admin: 03/26/17 09:49 Dose: 100 mg Enoxaparin Sodium (Lovenox) 40 mg SUBCUT DAILY [facility] Last Admin: 03/26/17 09:49 Dose: 40 mg Ondansetron HCl (Zofran Odt) 4 mg PO Q4H PRN PRN Reason: nausea, able to take PO Sodium Chloride (Saline Flush) 10 ml FLUSH ASDIRECTED PRN PRN Reason: Keep Vein Open Sodium Chloride (Saline Flush) 2.5 ml FLUSH ASDIRECTED PRN PRN Reason: Keep Vein Open Temazepam (Restoril) 15 mg PO BEDTIME PRN PRN Reason: Sleep Discontinued Medications Aspirin (Aspirin) 324 mg PO ONETIME ONE Stop: 03/23/17 18:27 Last Admin: 03/23/17 18:47 Dose: 324 mg Sodium Chloride (Saline Flush) 10 ml FLUSH ASDIRECTED PRN PRN Reason: Keep Vein Open Last Admin: 03/23/17 18:52 Dose: 10 ml Sodium Chloride (Saline Flush) 2.5 ml FLUSH ASDIRECTED PRN PRN Reason: Keep Vein Open Last Admin: 03/23/17 18:52 Dose: 2.5 ml Triamterene/HCTZ (Maxzide 50-75 Mg) 1 each PO DAILY [facility] - Exam Quality Assessment: DVT Prophylaxis General: Alert, Oriented, Cooperative HEENT: Pupils Equal, Pupils Reactive, Mucous Membr. Moist/[employer] Neck: Supple, No JVD Lungs: Clear to Auscultation, Normal Respiratory Effort Cardiovascular: Regular Rate, Regular Rhythm, No Murmurs. No: Tachycardia GI/Abdominal Exam: Normal Bowel Sounds, Soft, Non-Tender, No Organomegaly, No Distention, No Abnormal Bruit, No Mass, Pelvis Stable Extremities: Normal Inspection, Normal Range of Motion, Non-Tender, No Pedal Edema, Normal Capillary Refill Neurological: Reflexes Equal Bilateral, Other (R facial, improving slightly.). No: Normal Gait (Drags R leg, ), Normal Speech (slurred speech, but much more clear today. ), Strength Equal Bilateral (RUE weakness, able to move some, but is assisting alot with L side. Very limited fine motor movements.) Psy/Mental Status: Alert, Normal Affect, Normal Mood - Problem List & Annotations (1) Ischemic stroke SNOMED Code(s): 167970944 Code(s): I63.9 - CEREBRAL INFARCTION, UNSPECIFIED Status: Acute Current Visit: Yes (2) HTN (hypertension) SNOMED Code(s): 26163485 Code(s): I10 - ESSENTIAL (PRIMARY) HYPERTENSION Status: Chronic Current Visit: Yes Qualifiers: Hypertension type: essential hypertension Qualified Code(s): I10 - Essential (primary) hypertension (3) Dyslipidemia SNOMED Code(s): 066286889 Code(s): E78.5 - HYPERLIPIDEMIA, UNSPECIFIED Status: Chronic Current Visit: Yes Annotation/Comment:: never been on medication, treating with grape seed oil per patient. - Problem List Review Problem List Initiated/Reviewed/Updated: Yes - My Orders Last 24 Hours: My Active Orders 03/25/17 12:33 Docusate Sodium [Colace] 100 mg PO BID PRN 03/25/17 16:49 ALPRAZolam [Xanax] 0.25 mg PO Q8H PRN 03/26/17 05:00 BMP [BASIC METABOLIC PANEL,BMP] [CHEM] Routine CBC WITH AUTO DIFF [HEME] Routine - Plan Plan:: This 66 year old male admitted with ataxia and dysarthia 1. CVA: Continue ASA daily. Davian refused Lipitor due to past of taking one dose and he had palpitations. He is willing to try another statin. Will start Crestor 40 mg tonight. Continue to allow permissive HTN, discussed with Dr. Simms, she would allow this until follow up with PCP due to waxing and waning symptoms. She also would like to see neurologic stability for 48 hours before discharge. Will continue PT/OT/ST today and monitor. Plan for possible DC Thursday or Thursday. 2. HTN: Allow permissive HTN. VTE prophylaxis: Lovenox. Dispo: 1-2 days pending improvement.
[2017-03-26 10:49] LABS: SODIUM,NA 142 mmol/L (136-146)
[2017-03-26 10:50] LABS: CHLORIDE,CL 106 mmol/L (98-110)
--- NOTE | 2017-03-26 13:43 | PCM.CONSN ---
- General Info Date of Service: 03/26/17 Admission Dx/Problem (Free Text): Acute stroke Subjective Update: He reports no change in his right upper limb strength. He continues to have severe weakness in the right arm. No headaches, no new weakness in the right leg. He believes that his speech and facial droop have improved. He has been up walking under supervision. He denies headache - Patient Data Vitals - Most Recent: Last Vital Signs Temp 36.7 C 03/26/17 08:00 Pulse 62 03/26/17 08:00 Resp 16 03/26/17 08:00 BP 154/86 H 03/26/17 08:00 Pulse Ox 96 03/26/17 08:00 Weight - Most Recent: 102 kg I&O - Last 24 Hours: Intake & Output 03/25/17 03/26/17 03/26/17 22:59 06:59 14:59 Output Total 600 Balance -600 Lab Results Last 24 Hours: Laboratory Results - last 24 hr 03/26/17 03/26/17 Range/Units 05:00 05:00 WBC 4.40 (4.0-11.0) K/uL RBC 4.54 (4.50-5.90) M/uL Hgb 14.0 (13.0-17.0) g/dL Hct 40.7 (38.0-50.0) % MCV 89.6 (80.0-98.0) fL MCH 30.8 (27.0-32.0) pg MCHC 34.4 (31.0-37.0) g/dL RDW Std Deviation 45.4 (28.0-62.0) fl RDW Coeff of Antonia 14 (11.0-15.0) % Plt Count 232 (150-400) K/uL MPV 9.80 (7.40-12.00) fL Neut % (Auto) 51.5 (48.0-80.0) % Lymph % (Auto) 33.2 (16.0-40.0) % [place] % (Auto) 9.8 (0.0-15.0) % Eos % (Auto) 5.0 (0.0-7.0) % Baso % (Auto) 0.5 (0.0-1.5) % Neut # (Auto) 2.3 (1.4-5.7) K/uL Lymph # (Auto) 1.5 (0.6-2.4) K/uL [place] # (Auto) 0.4 (0.0-0.8) K/uL Eos # (Auto) 0.2 (0.0-0.7) K/uL Baso # (Auto) 0.0 (0.0-0.1) K/uL Nucleated RBC % 0.0 /100WBC Nucleated RBCs # 0 K/uL Sodium 142 (136-146) mmol/L Potassium 4.1 (3.5-5.1) mmol/L Chloride 106 (98-110) mmol/L Carbon Dioxide 27 (21-31) mmol/L BUN 17 (6.0-23.0) mg/dL Creatinine 1.2 (0.6-1.5) mg/dL Est Cr Clr Drug Dosing 74.33 mL/min Estimated GFR (MDRD) > 60.0 ml/min Glucose 102 (60-110) mg/dL Calcium 9.2 (8.8-10.8) mg/dL Med Orders - Current: Current Medications Acetaminophen (Tylenol) 650 mg PO Q4H PRN PRN Reason: Pain (Mild 1-3)/fever Alprazolam (Xanax) 0.25 mg PO Q8H PRN PRN Reason: Anxiety Aspirin (Aspirin) 325 mg PO DAILY [facility] Last Admin: 03/26/17 09:49 Dose: 325 mg Docusate Sodium (Colace) 100 mg PO BID PRN PRN Reason: Constipation Last Admin: 03/26/17 09:49 Dose: 100 mg Enoxaparin Sodium (Lovenox) 40 mg SUBCUT DAILY [facility] Last Admin: 03/26/17 09:49 Dose: 40 mg Ondansetron HCl (Zofran Odt) 4 mg PO Q4H PRN PRN Reason: nausea, able to take PO Rosuvastatin Calcium (Crestor) 40 mg PO BEDTIME [facility] Sodium Chloride (Saline Flush) 10 ml FLUSH ASDIRECTED PRN PRN Reason: Keep Vein Open Sodium Chloride (Saline Flush) 2.5 ml FLUSH ASDIRECTED PRN PRN Reason: Keep Vein Open Temazepam (Restoril) 15 mg PO BEDTIME PRN PRN Reason: Sleep Discontinued Medications Aspirin (Aspirin) 324 mg PO ONETIME ONE Stop: 03/23/17 18:27 Last Admin: 03/23/17 18:47 Dose: 324 mg Atorvastatin Calcium (Lipitor) 80 mg PO BEDTIME [facility] Last Admin: 03/25/17 22:08 Dose: Not Given Sodium Chloride (Saline Flush) 10 ml FLUSH ASDIRECTED PRN PRN Reason: Keep Vein Open Last Admin: 03/23/17 18:52 Dose: 10 ml Sodium Chloride (Saline Flush) 2.5 ml FLUSH ASDIRECTED PRN PRN Reason: Keep Vein Open Last Admin: 03/23/17 18:52 Dose: 2.5 ml Triamterene/HCTZ (Maxzide 50-75 Mg) 1 each PO DAILY [facility] Comments:: Echocardiogram demonstrated an EF 60-65% trace valve abnormalities Labs 03/24/2017 LDL 107, A1c 5.6 MRI brain March 24, 2017: Acute left basal ganglia infarct MRA brain and neck March 24, 2017: No significant stenosis Repeat CT head 03/25/2017 - evolving stroke, no acute hemorrhage Consult PN Assessment/Plan (1) Ischemic stroke SNOMED Code(s): 664397647 Code(s): I63.9 - CEREBRAL INFARCTION, UNSPECIFIED Current Visit: Yes Assessment:: Acute onset face/arm weakness, dysarthria, ataxia c/w acute stroke. He had progression of right upper limb weakness yesterday. CT showed no hemorrhage. Rec: -Telemetry - no reported atrial fibrillation thus far -Continue ASA 325 mg -Reasonable to change from Lipitor to rosuvastatin given patient's concerns about prior reaction to Lipitor (palpitations). -PT/OT/Speech following -Permissive HTN - I would not restart any meds for now. I recommend that have a follow up with his primary care provider in 1-2 weeks to recheck and reconsider starting new med. He has had reaction to lisinopril and intolerance to HCTZ -Dispo: consider discharge when he has been clinically stable for >48 hours taking OT/PT recommendations into account Problem List Initiated/Reviewed/Updated: Yes
[2017-03-26] MEDS: Rosuvastatin 10 MG Tab PO SCH ×2 (13:56→22:40)
[2017-03-27] MEDS: Aspirin 325 MG Tab PO SCH (08:22)
[2017-03-27] MEDS: Enoxaparin 40 MG/0.4 ML Syringe SUBCUT SCH (08:22)
--- NOTE | 2017-03-27 10:32 | PCM.DCSUM1 ---
Discharge Summary - Hospital Course Brief History: This 66 year old male with pmh of dyslipidemia and HTN presented to the ED 03/23 around 1730 with concerns of dysarthia and atxia which started at 0900 that morning. He at that time took a BP pill. He was urged by family to seek medical treatment but did not come in until 1730. He denied chest pain or shortness of breath. No prior hx of CVA or VA. In the ED it was noted all but speech impairment had cleared. In the ED, Head CT was negative. CXR negative. all labwork was WNL. Slight elevation in glucose. EKG SR. TSH 4.05. He was admitted with suspicion of TIA, rule out CVA. - Discharge Data Discharge Date: 03/27/17 Discharge Disposition: Home, Self-Care 01 Condition: Good - Discharge Diagnosis/Problem(s) (1) Ischemic stroke SNOMED Code(s): 368825110 ICD Code: I63.9 - CEREBRAL INFARCTION, UNSPECIFIED Status: Acute Current Visit: Yes (2) HTN (hypertension) SNOMED Code(s): 30540356 ICD Code: I10 - ESSENTIAL (PRIMARY) HYPERTENSION Status: Chronic Current Visit: Yes Qualifiers: Hypertension type: essential hypertension Qualified Code(s): I10 - Essential (primary) hypertension (3) Dyslipidemia SNOMED Code(s): 423917920 ICD Code: E78.5 - HYPERLIPIDEMIA, UNSPECIFIED Status: Chronic Current Visit: Yes Problem Details: never been on medication, treating with grape seed oil per patient. (4) Dysarthria SNOMED Code(s): 3125128 ICD Code: R47.1 - DYSARTHRIA AND ANARTHRIA Status: Acute Current Visit: Yes (5) Weakness of right side of body SNOMED Code(s): 595080775 ICD Code: R53.1 - WEAKNESS Status: Acute Current Visit: Yes - Patient Summary/Data Consults: Consultations 03/23/17 19:58 [employer] Evaluation and Treatment [CONS] Routine 03/24/17 08:00 OT Evaluation and Treatment [CONS] Routine PT Evaluation and Treatment [CONS] Routine 03/24/17 10:28 Consult to Physician [CONS] Routine 03/24/17 14:07 Consult to Speech Language Pathology [[employer] Evaluation and Treatment] [CONS] Routine 03/25/17 07:58 Consult to [place] [employer] [CONS] Routine - Patient Instructions Diet: Heart Healthy Diet Activity: As Tolerated Driving: Do Not Drive Showering/Bathing: May Shower Notify Provider of: Fever, Increased Pain, Swelling and Redness, Drainage, Nausea and/or Vomiting Other/Special Instructions: Outpatient PT/OT/ST to evaluate and treat - Discharge Plan Prescriptions/Med Rec: Aspirin 325 mg PO DAILY #60 tablet Rosuvastatin Calcium [Crestor] 40 mg PO BEDTIME #30 tablet Home Medications: Home Meds Aspirin 325 mg PO DAILY #60 tablet 03/27/17 [Rx] Rosuvastatin Calcium [Crestor] 40 mg PO BEDTIME #30 tablet 03/27/17 [Rx] Patient Handouts: Ischemic Stroke Treated Without Warfarin, [id number], Hypertension, [id number], Aspirin, ASA oral tablets, Rosuvastatin Tablets Referrals: Shaylee Simms MD [Physician] - 04/08/17 11:00 am (follow up re: CVA 1-3 weeks. Please check-in at 10:45 a.m. ) Nathaniel Jenkins MD [Physician] - 04/02/17 8:30 am (Follow up in 1 week) - Discharge Summary/Plan Comment DC Time >30 min.: No Discharge Summary/Plan Comment: Discharge Diagnoses: CVA, ischemic HTN Dyslipidemia R sided weakness Dysarthia Davian was admitted and place on telemetry. MRI/MRA of brain and neck ordered. By 03/24 am, noticeable R sided weakness almost flaccidness present to R arm and 4/5 weakness to R leg. Dysarthia again was present with R sided facial drooping. MRI/MRA of brain and neck revealed small left periventricular to left basal ganglia infarct, there was poor visualization of the origins of the vertebral arteries, otherwise unremarkable intracranial and neck screening arterial circulation. Dr. Simms was consulted that morning. He was already on ASA and statin. HTN medication was on hold. Lipids returned with Total 150, LDL 107, HDL 30 and Triglycerides 63. A1c 5.6. He was started on high intensity statin, Lipitor 80 mg, he took one dose of this then refused it due to taking it previously and having some palpitations. He was open to trying another statin. He was then placed on Crestor 40 mg. Telemetry was SR, no arrhytmia such as afib noted. BP remained 130-170/80-100. On 03/25 he woke up with again worsening R sided weakness and speech again was garbled. Head CT ordered to evaluate for bleeding, Head CT revealed evolving infarct of left basal ganglia with extension to frank radiata. Dr. Simms aware and encouraged to continue permissive HTN and monitoring. PT/OT/ST ordered. He has been stable now with no neurologic changes for 48 hours. ECHO revealed LV EF 60-65%, impaired relaxation Grade 1 patter of LV diastolic filling, mildly dilated left atrium, aortic valve is structurally normal, trace mitral valve regurgitation, trace tricuspid valve regurgitation, no intracavity filling defects of intracardiac shunts. He has been working with PT/OT/ST daily. Speech is definitely more clear today, R sided weakness to arm continues. He is able to ambulate well, some dragging of r foot noted. He is to be discharged today, he is to continue on ASA daily as well as Crestor. Per Dr. Simms she recommends to allow HTN until follow up with PCP. He has been on LEVI/ARB prior which caused renal failure and he was most recently on HCTZ/Triameterene which he stopped taking due to it making him tired and achey. He will follow with PT/ OT/ST as outpatient. We have arranged appointments with Dr. Jenkins and Dr Simms for follow up. He does have plans after some rehab to return to [place] with his but that timing is unknown at this time. - General Info Date of Service: 03/27/17 Admission Dx/Problem (Free Text: CVA Subjective Update: Doing well this morning. no chest pain or SOB. Speech is more clear, R arm weakness continues along with R leg weakness. Asking if he will get to go home today. at bedside. Functional Status: Reports: Pain Controlled, Tolerating Diet, Ambulating, Urinating - Review of Systems General: Reports: No Symptoms. Denies: Fever Pulmonary: Reports: No Symptoms. Denies: Shortness of Breath, Cough, Sputum Cardiovascular: Reports: No Symptoms. Denies: Chest Pain, Edema Gastrointestinal: Reports: No Symptoms. Denies: Abdominal Pain, Constipation, Nausea, Vomiting Genitourinary: Reports: No Symptoms. Denies: Dysuria, Frequency, Burning Skin: Reports: No Symptoms Neurological: Reports: Trouble Speaking (improved), Weakness (R arm and leg, stable.), Gait Disturbance - Patient Data Vitals - Most Recent: Last Vital Signs Temp 97.7 F 03/27/17 08:00 Pulse 75 03/27/17 08:00 Resp 16 03/27/17 08:00 BP 146/96 H 03/27/17 08:00 Pulse Ox 96 03/27/17 08:00 Weight - Most Recent: 102 kg I&O - Last 24 hours: Intake & Output 03/26/17 03/27/17 03/27/17 22:59 06:59 14:59 Intake Total 550 1300 Output Total 980 Balance 550 320 Lab Results - Last 24 hrs: Laboratory Results - last 24 hr 03/26/17 03/26/17 Range/Units 05:00 05:00 WBC 4.40 (4.0-11.0) K/uL RBC 4.54 (4.50-5.90) M/uL Hgb 14.0 (13.0-17.0) g/dL Hct 40.7 (38.0-50.0) % MCV 89.6 (80.0-98.0) fL MCH 30.8 (27.0-32.0) pg MCHC 34.4 (31.0-37.0) g/dL RDW Std Deviation 45.4 (28.0-62.0) fl RDW Coeff of Antonia 14 (11.0-15.0) % Plt Count 232 (150-400) K/uL MPV 9.80 (7.40-12.00) fL Neut % (Auto) 51.5 (48.0-80.0) % Lymph % (Auto) 33.2 (16.0-40.0) % [place] % (Auto) 9.8 (0.0-15.0) % Eos % (Auto) 5.0 (0.0-7.0) % Baso % (Auto) 0.5 (0.0-1.5) % Neut # (Auto) 2.3 (1.4-5.7) K/uL Lymph # (Auto) 1.5 (0.6-2.4) K/uL [place] # (Auto) 0.4 (0.0-0.8) K/uL Eos # (Auto) 0.2 (0.0-0.7) K/uL Baso # (Auto) 0.0 (0.0-0.1) K/uL Nucleated RBC % 0.0 /100WBC Nucleated RBCs # 0 K/uL Sodium 142 (136-146) mmol/L Potassium 4.1 (3.5-5.1) mmol/L Chloride 106 (98-110) mmol/L Carbon Dioxide 27 (21-31) mmol/L BUN 17 (6.0-23.0) mg/dL Creatinine 1.2 (0.6-1.5) mg/dL Est Cr Clr Drug Dosing 74.33 mL/min Estimated GFR (MDRD) > 60.0 ml/min Glucose 102 (60-110) mg/dL Calcium 9.2 (8.8-10.8) mg/dL Med Orders - Current: Current Medications Acetaminophen (Tylenol) 650 mg PO Q4H PRN PRN Reason: Pain (Mild 1-3)/fever Alprazolam (Xanax) 0.25 mg PO Q8H PRN PRN Reason: Anxiety Aspirin (Aspirin) 325 mg PO DAILY [facility] Last Admin: 03/27/17 08:22 Dose: 325 mg Docusate Sodium (Colace) 100 mg PO BID PRN PRN Reason: Constipation Last Admin: 03/26/17 09:49 Dose: 100 mg Enoxaparin Sodium (Lovenox) 40 mg SUBCUT DAILY [facility] Last Admin: 03/27/17 08:22 Dose: 40 mg Ondansetron HCl (Zofran Odt) 4 mg PO Q4H PRN PRN Reason: nausea, able to take PO Rosuvastatin Calcium (Crestor) 40 mg PO BEDTIME [facility] Last Admin: 03/26/17 22:40 Dose: Not Given Sodium Chloride (Saline Flush) 10 ml FLUSH ASDIRECTED PRN PRN Reason: Keep Vein Open Sodium Chloride (Saline Flush) 2.5 ml FLUSH ASDIRECTED PRN PRN Reason: Keep Vein Open Temazepam (Restoril) 15 mg PO BEDTIME PRN PRN Reason: Sleep Discontinued Medications Aspirin (Aspirin) 324 mg PO ONETIME ONE Stop: 03/23/17 18:27 Last Admin: 03/23/17 18:47 Dose: 324 mg Atorvastatin Calcium (Lipitor) 80 mg PO BEDTIME [facility] Last Admin: 03/25/17 22:08 Dose: Not Given Sodium Chloride (Saline Flush) 10 ml FLUSH ASDIRECTED PRN PRN Reason: Keep Vein Open Last Admin: 03/23/17 18:52 Dose: 10 ml Sodium Chloride (Saline Flush) 2.5 ml FLUSH ASDIRECTED PRN PRN Reason: Keep Vein Open Last Admin: 03/23/17 18:52 Dose: 2.5 ml Triamterene/HCTZ (Maxzide 50-75 Mg) 1 each PO DAILY [facility] - Exam General: Reports: Alert, Oriented, Cooperative, No Acute Distress Neck: Reports: Supple Lungs: Reports: Clear to Auscultation, Normal Respiratory Effort Cardiovascular: Reports: Regular Rate, Regular Rhythm GI/Abdominal Exam: Normal Bowel Sounds, Soft, Non-Tender, No Organomegaly, No Distention, No Abnormal Bruit, No Mass, Pelvis Stable Extremities: Normal Inspection, Normal Range of Motion, Non-Tender, No Pedal Edema, Normal Capillary Refill Skin: Reports: Warm, Dry, Intact Neurological: Reports: Normal Speech (dysarthia improved slight R facial droop remains). Denies: Strength Equal Bilateral (R sided weakness and flaccidness ) Psy/Mental Status: Reports: Alert, Normal Affect, Normal Mood *Q Meaningful Use (DIS) - VTE *Q VTE Criteria *Q: - Stroke *Q Stroke Criteria *Q: - AMI *Q AMI Criteria *Q:
--- NOTE | 2017-03-27 12:41 | ECHO ---
EXAM DATE: 03/23/17 PATIENT'S AGE: 66 The echocardiogram report can be seen in this patient's EMR (Electronic Medical Record) in the Reports section. The report has also been scanned into PACs. BETH
[2017-03-27 13:54] VITALS: BP 141/85
[2017-03-28] MEDS ORDERED: Ketamine 500 mg/10 ML MDV ONE (10:28)
[2017-03-28] MEDS ORDERED: Midazolam 1 MG/ML 2 ML SDV ONE (10:28)
[2017-03-28] MEDS ORDERED: fentaNYL 100 MCG/2 ML SDV ONE (10:28)
[2017-03-28] MEDS ORDERED: Propofol 200 MG/20 ML SDV ONE (10:28)
== END 2017-03-27 13:00 | disposition home or self-care (01) | DRG 66 ==
LOC: MW.ED 17:34 → OBSVTOIN 19:29 → MW.MS 19:29
PROVIDERS: ADMIT Family Medicine; ATTEND Family Medicine
DX: I63.9 Cerebral infarction, unspecified (principal); I10 Essential (primary) hypertension; E78.5 Hyperlipidemia, unspecified; R47.1 Dysarthria and anarthria; R53.1 Weakness; Z79.899 Other long term (current) drug therapy
CPT/HCPCS: 36415; 70450; 70450-26; 70544; 70544-26; 70549; 70549-26; 70553; 70553-26; 71010; 71010-26; 80048; 80053; 80061; 81001; 83036; 83735; 84443; 84484; 85025; 85610; 85730; 92507-GN; 92522-GN; 92610-GN; 93005; 93306; 97032-GO; 97110-GP; 97116-GP; 97162-GP; 97166-GO; 97530-GP; 97535-GO; 99283; 99285-25; A9270-GY; J1650